=== PATIENT | female | born 1990 | race Asian ===

== ENCOUNTER 2018-06-28 02:40 | Emergency (ER) | payer OTHER ==
[~2018-06-28] VITALS: Ht 154.9 cm; Wt 59.1 kg
[2018-06-28] MEDS ORDERED: PRENCHW PO (02:49)
[2018-06-28] MEDS ORDERED: MIRA3350 PO (02:49)
[2018-06-28] MEDS ORDERED: PHENAZOPYRIDINE 100 MG TAB PO ONE (03:15)
[2018-06-28] MEDS ORDERED: CIPROFLOXACIN 500 MG TAB PO ONE (03:30)
[2018-06-28] MEDS ORDERED: CIPR-249 PO (03:33)
[2018-06-28] MEDS ORDERED: PYRI1TAB5 PO (03:33)
[2018-06-28 03:52] VITALS: BP 95/59
== END 2018-06-28 03:55 | disposition home or self-care (01) ==
LOC: M ED 02:40
DX: N39.0 Urinary tract infection, site not specified (principal); Z79.899 Other long term (current) drug therapy